=== PATIENT | male | born 1980 | race Caucasian/White ===

== ENCOUNTER 2019-05-29 01:47 | Emergency (ER) | payer OTHER ==
[~2019-05-29] VITALS: Ht 188 cm; Wt 79.4 kg
[2019-05-29] MEDS ORDERED: DICLOFENAC SODI75 MG PO (03:46)
== END 2019-05-29 04:05 | disposition home or self-care (01) ==
LOC: ED 01:47
DX: M94.0 Chondrocostal junction syndrome [Tietze] (principal)
CPT/HCPCS: 71045; 76705; 80053; 81001; 83690; 85025; 99284-25